=== PATIENT | female | born 2000 | race Caucasian/White ===

== ENCOUNTER 2024-11-25 13:26 | Emergency (ER) | payer OTHER, SELFPAY ==
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
[2024-11-25 15:46] LABS: HCG, Urine Qualitative Screen Negative
[2024-11-25 15:55] LABS: Amphetamines Negative (Negative); Barbiturates Negative (Negative); Benzodiazepines Negative (Negative); Buprenorphine Negative (Negative); Cocaine Negative (Negative); Marijuana Negative (Negative); Methadone Negative (Negative); Methamphetamines Negative (Negative); Opiates Negative (Negative); Phencyclidine Negative (Negative); Tricyclic Antidepressants Negative (Negative)
[2024-11-25] MEDS: ATIVAN 2 MG IM ×2 (16:08→18:10)
[2024-11-25 17:38] VITALS: BP 112/67
[2024-11-25] MEDS: HALDOL 5 MG IM (18:12)
[2024-11-25 19:13] VITALS: BP 138/77
--- NOTE | 2024-11-26 14:09 | W.PN.UPDATE ---
Update Note
Progress Note Update
Patient is restless but not presently agitated or aggressive. Still taking off her clothing and refusing to put underwear and pants on. She admits she was aggressive towards mother as mother refused to keep buying dolls for her.
I called mother who reports she is constantly demanding she buys her gifts, usually dolls and if she does not patient becomes aggressive. She does see a prescriber at [facility] and was recently discontinued from Seroquel which was apparently
not effective and caused increase in appetite as well as weight gain. In the past bshe was on Risperdal which was marginally effective and previous to that Depakote and possibly Abilify.
At this point I will try Latuda 20 mg hs. Discussed with mother who was agreeable, side effects also discussed.
Crisis is looking for placement.
[2024-11-26 19:01] VITALS: BP 147/79
[2024-11-26] MEDS: LATUDA 20 MG PO (22:41)
--- NOTE | 2024-11-26 22:52 | EDRN ---
Report received, introduced myself to patient, meds ordered fo bedtime, patient states she doesn't swallow pills very well, placed pilled in applesauce and then fuentes mo to try to get it down, patient going to try to sleep, aware to ask
security if she needs anything
--- NOTE | 2024-11-27 03:36 | EDRN ---
Patient has remained sleeping, safe environment maintained, will continue to monitor
[2024-11-27 08:00] VITALS: BP 136/72
--- NOTE | 2024-11-27 11:59 | W.PN.UPDATE ---
Update Note
Progress Note Update
Pt seen, reviewed the 302, tele-psych eval, discussed with Crisis staff. Pt alert, calm, cooperative, sitting up in bed. Pt denies any suicidal ideation, states she feels bad because she took her mother's credit card and bought expensive dolls.
Pt states she feels safe to return home if discharged. Crisis staff reports pt's mother (who filed the 302 petition) is now asking for pt to be released back home; pt not able to be placed and is not benefiting from being in the ED setting. Mother
reportedly conferring with pt's outpatient psychiatrist. Pt was recently started on Seroquel which reportedly made her behavior worse.
Imp: ASD, ID, unspecified impulse control d/o. No signs of depression; pt denies any SI or urge for self-harm
Rec: Do not find grounds for further involuntary treatment; pt appears stable for discharge home with outpatient psychiatric follow-up
[2024-11-27 12:15] VITALS: BP 144/93
--- NOTE | 2024-11-27 12:16 | ED.CRISIS ---
ED Crisis Note
ED Crisis Note
Subjective:
Pt offers no complaints
Objective:
Vital signs stable and remains cooperative
Assessment/Plan:
Pt evaluated by (psychiatry) who feels that pt is safe to be discharged home, for outpatient evaluation/tx. Pt's mother feels comfortable taking the patient home at this time.
[2024-11-27 12:18] LABS: Glucose - Point of Care 143 mg/dl (70-99)
--- NOTE | 2024-11-27 12:35 | EDRN ---
[employer] worker came to this RN w/ update on pt and said mother wishes to negate pt for in pt psychiatric care. No longer a safety hold at this time. Pt will go home w/ mother at 14:00 w/ okay be Dr. Funk. Pt was on metformin at home and it was not
ordered for here. BS via accucheck done and Dr. Funk informed and said not to medicate pt at this time w/ her missed metformin dose but make sure pt restarts her metformin upon discharge home.
Dr. Funk has written up pt's discharge plan. Pt has ordered via security a lunch tray.
--- NOTE | 2024-11-27 14:15 | EDRN ---
Mother of pt arrived asking for prescription for Latuda. Dr. Funk declined writing script as it was written by psychiatrist and needs a psychiatrist to write the script. Mother and pt went to crisis waiting area to await prescription for Latuda at
this time. Psychiatrist was called by Maggy from crisis.
--- NOTE | 2024-11-27 14:45 | EDRN ---
Maggy from crisis called and pt w/ mother left after prescription was called in by psychiatrist to her pharmacy at 14:45.
== END 2024-11-27 14:45 ==
LOC: EMR 13:26
PROVIDERS: EMERGENCY PHYSICIAN Emergency Medicine
DX: F33.2 Major depressive disorder, recurrent severe without psychotic features (principal); F84.0 Autistic disorder; F71 Moderate intellectual disabilities; F41.9 Anxiety disorder, unspecified; E11.9 Type 2 diabetes mellitus without complications
CPT/HCPCS: 96372; 99284; 80306; 81025; 82962